=== PATIENT | female | born 1995 | race Caucasian/White ===

== ENCOUNTER → 2020-01-09 18:09 | Outpatient (CLI) | payer BC, SELFPAY ==
--- NOTE | ~2020-01-09 | XR_ITS ---
EXAMINATION: XR chest 2V 01/09/2020 18:36 INDICATION: Arthritis. Migraine headaches. PROCEDURE: 2 view chest COMPARISON: 03/31/2019 FINDINGS: The lungs are clear. The cardiomediastinal silhouette is within normal limits. There are no pleural effusions. There is no pneumothorax suspected. IMPRESSION: 1: NO ACUTE CARDIOPULMONARY DISEASE. Reviewed, dictated and finalized at location A. [employer]ODUCTION ASSOC[employer]ATE
--- NOTE | ~2020-01-09 | XR_ITS ---
XR hand BI arthritis min 3V 01/09/2020 18:36 Indication: Rheumatoid arthritis Procedure: 4 views of each hand Comparison: No prior studies for comparison. Findings: No fracture, subluxation or dislocation. No erosive changes. Anatomic alignment. No signifi cant joint space narrowing. There is normal mineralization. Impression: 1: No significant bone or joint abnormality. Reviewed, dictated and finalized at location A. MOLDER Impression: 1: No significant bone or joint abnormality.
== END ==
PROVIDERS: PCP Internal Medicine; Visit Provider Internal Medicine
DX: M05.79 Rheumatoid arthritis with rheumatoid factor of multiple sites without organ or systems involvement (principal)
CPT/HCPCS: 71046; 73130